=== PATIENT | male | born 1935 | race Caucasian/White ===

== ENCOUNTER 2017-07-28 18:05 | Inpatient (IN) | payer MEDICARE, BC ==
--- NOTE | 2017-07-28 19:01 | RAD ---
RADIOGRAPH CHEST 2 VIEWS: Date: 07-28-17 Time: 6:42 p.m. HISTORY: 81-year-old male with cough and fever. COMPARISON: None. FINDINGS: There is indistinctness of the left lateral costophrenic angle and the bilateral posterior costophren ic angle. Cardiac shadow is partially obscured. No pulmonary edema or consolidation. No pneumothorax. There are streaky densities at the retrocardiac portion of the left lower lobe. IMPRESSION: 1. Findings suggestive of tiny bilateral pleural effusions. 2. Streaky pulmonary densities in the left lower lobe, probably representing subsegmental atelectasis . ELIZABETH POS: LEAH
[2017-07-28] MEDS ORDERED: Albuterol Sulfate 2.5 mg/0.5 ml Neb ONE ×2 (19:35→20:41)
[2017-07-28 19:36] LABS: #Basophils 0.1 thou/uL (0.0-0.2); #Lymphocytes 0.8 thou/uL (1.20-3.40); #Monocytes 0.5 thou/uL (0.11-0.59); #Neutrophils 4.2 thou/uL (1.40-6.50); %Basophils 1.1 % (0.0-1.0); %Lymphocytes 13.4 % (21.0-51.0); %Monocytes 9.5 % (0.0-10.0); Mean Platelet Volume 8.6 fL (7.4-10.4); Red Blood Cell (RBC) Count 4.26 mill/uL (4.70-6.10); White Blood Cell (WBC) Count 5.6 thou/uL (4.8-10.8)
[2017-07-28 19:49] LABS: ALT (SGPT) 27 U/L (8-55); AST (SGOT) 34 U/L (5-34); Alkaline Phosphatase 49 U/L (40-150); Anion Gap 18 mmol/L (10-20); BUN (Urea Nitrogen) 11 mg/dL (8.4-25.7); Bilirubin, Total 0.6 mg/dL (0.2-1.2); Calc. Creatinine Clearance 0 mL/min (70-130); Calcium 8.8 mg/dL (7.8-10.44); Carbon Dioxide 21 mmol/L (23-31); Chloride 95 mmol/L (98-107); Estimated GFR-MDRD 88; Globulin 2.7 g/dL (2.4-3.5); Protein, Total 6.8 g/dL (5.8-8.1)
[2017-07-28] MEDS ORDERED: Oseltamivir 75 MG CAP ONE (21:04)
[2017-07-28] MEDS ORDERED: Ondansetron HCl/PF 4 MG/2 ML Vial IVP PRN (23:39)
[2017-07-28] MEDS ORDERED: Acetaminophen 325 MG TAB PO PRN (23:39)
[2017-07-28] MEDS ORDERED: Ondansetron ODT 4 MG TAB SL PRN (23:39)
--- NOTE | 2017-07-28 23:53 | PDOC.EVN ---
Event Note - Event Note Event Note: [id number] H&P DICTATED 1. Acute influenza infection 2. Pneumonia 3. HTN 4. HPL Plan: see orders
[2017-07-29] MEDS ORDERED: Cyclobenzaprine 10 MG TAB PO PRN (00:25)
[2017-07-29] MEDS ORDERED: Sodium Chloride 0.9% 1,000 ML IV SCH (00:30)
--- NOTE | 2017-07-29 01:08 | HP ---
DATE OF ADMISSION: 07/28/2017 CHIEF COMPLAINT: Dyspnea, cough, congestion. HISTORY OF PRESENT ILLNESS: The patient is 81-year-old male with past medical history of hypertensio n, hyperlipidemia, now came to the ER complaining of cough and chest congestion. The patient started having cough and congestion since yesterday associated with some fever and dyspnea, dyspnea got wors e. The patient had an episode of vomiting yesterday and 2 episodes today. Complaints of fever and c hills. The patient went to outside ER. Upon arrival to the outside ER, the patient was found to be hypoxic with sats around 85% on room air, so patient was placed in oxygen and oxygen sats improved to 91% to 92%. The patient was also wheezing in the outside ER. The patient was transferred to ER as a flu test is positive. PAST MEDICAL HISTORY: As per HPI. PAST SURGICAL HISTORY: Basal cell skin cancer removal. SOCIAL HISTORY: Denies smoking. Drinks alcohol, denies drugs. FAMILY HISTORY: Denies any heart problems. MEDICATIONS: Reviewed. REVIEW OF SYSTEMS: Constitutional: Positive for fever and chills. Positive for fatigue. Eyes: De nies any vision problems. Ears: Denies any hearing loss. Neck: Denies any neck pain. Cardiovascu lar system: Denies any chest pain. Respiratory system: Positive for dyspnea. Positive for cough a nd sputum production. Gastrointestinal: Denies nausea, vomiting. Musculoskeletal: Denies any join t deformities. Cranial nerve system: Denies syncope. Psychiatric: Denies depression or anxiety. Integumentary: Denies any rash. All other review of systems are reviewed and are negative. PHYSICAL EXAMINATION: CONSTITUTIONAL/VITAL SIGNS: At the time of H&P performed, blood pressure is 130/80, heart rate 85, r espiratory rate 20, pulse ox 91% to 99% on 2 liters. GENERAL APPEARANCE: The patient appears comfortable. HEENT: Anterior nares patent. Nose normal. Ears normal. Teeth intact. NECK: Supple, no JVD. RESPIRATORY SYSTEM: Positive for crackles. Occasional wheezing, no rhonchi. Normal effort. CARDIOVASCULAR SYSTEM: S1, S2 present. Regular rate and rhythm. No murmurs, no rubs, no gallops. GASTROINTESTINAL: Abdomen is soft, nontender, no guarding, no organomegaly, no masses felt. MUSCULOSKELETAL: No edema. CRANIAL NERVE SYSTEM: Cranial nerves intact. Follows commands. Speech clear. PSYCHIATRIC: Mood is appropriate at this time. LABORATORY DATA: At the time of H&P performed, white count 5.6, hemoglobin 13.3, platelet count 121. BMP shows sodium 130, potassium 4.1, chloride 95, CO2 of 21, BUN of 11, creatinine 0.84, glucose 11 2. ASSESSMENT AND PLAN: The patient is a 81-year-old male. 1. Acute influenza infection. Plan to start the patient on Tamiflu 75 mg p.o. b.i.d. Plan to monit or the patient closely. 2. Acute hypoxic respiratory failure. Monitor respiratory status closely. Continue breathing treat ments. 3. Possible pneumonia. Plan to start the patient on IV antibiotics. Repeat chest x-ray in 2 days i f symptom does not improve. 4. History of hypertension. Continue blood pressure medications. 5. History of hyperlipidemia. Continue statin. The case was discussed in detail with the patient.
[2017-07-29] MEDS: CEFEPIME SLOW IVP SCH ×2 (08:51→21:29)
[2017-07-29] MEDS: STERILE WATER SLOW IVP SCH ×2 (08:51→21:29)
[2017-07-29] MEDS ORDERED: Diabetic Tussin 200 MG/10 ML UDCUP PO PRN (10:07)
[2017-07-29] MEDS ORDERED: Oseltamivir 75 MG CAP PO SCH ×2 (10:15→21:00)
[2017-07-29 11:52] VITALS: BMI 33.3
--- NOTE | 2017-07-29 15:23 | PDOC.PN ---
- Subjective Encounter Start Date: 07/29/17 Encounter Start Time: 09:00 Patient seen and examined. Feels slightly better. Cough +. No overnight events - Objective MAR Reviewed: Yes Vital Signs & Weight: Vital Signs (12 hours) Temp Pulse Resp BP Pulse Ox 07/29/17 13:55 55 L 20 07/29/17 12:32 96.9 F L 54 L 14 147/67 H 95 07/29/17 10:57 55 L 20 95 07/29/17 09:07 98.6 F 66 18 07/29/17 08:49 98.6 F 66 18 160/74 H 96 07/29/17 04:00 98.2 F 62 18 137/63 95 Weight Admit Weight 97 lb 4.8 oz Weight 219 lb 2.3 oz I&O: 07/28/17 07/29/17 07/30/17 06:59 06:59 06:59 Intake Total 715 Balance 715 Result Diagrams: 07/28/17 19:20 07/28/17 19:20 EKG Reviewed by me: Yes (Tele SR) Phys Exam - Physical Examination Constitutional: NAD Respiratory: no wheezing, no rhonchi Left basilar rales Cardiovascular: RRR, no rub Gastrointestinal: soft, non-tender, positive bowel sounds Musculoskeletal: no edema Neurological: non-focal, moves all 4 limbs Psychiatric: A&O x 3 Dx/Plan - Plan DVT proph w/SCDs IMPRESSION: 1. Acute hypoxic Resp failure - improving 2. Influenza A 3. Suspected CAP due to influenza 4. HTN 5. HLD PLAN: * Cont Tamiflu with Levaquin * Cont current meds as below * Repeat CXR in 4 weeks Review of Systems - Review of Systems Cardiovascular: negative: Chest Pain, Palpitations, Orthopnea, Paroxysmal Noc. Dyspnea, Edema, Light Headedness Gastrointestinal: negative: Nausea, Vomiting, Abdominal Pain, Diarrhea, Constipation, Melena, Hematochezia - Medications/Allergies Allergies/Adverse Reactions: Allergies Allergy/AdvReac Type Severity Reaction Status Date / Time No Known Allergies Allergy Verified 07/29/17 01:22 Medications: Current Medications Albuterol/Ipratropium (Duoneb) 3 ml IPPB [id number] PABLO Last Admin: 07/29/17 13:55 Dose: 3 ml Aspirin (Ecotrin) 81 mg PO HS PABLO Atorvastatin Calcium (Lipitor) 20 mg PO HS PABLO Cyclobenzaprine HCl (Flexeril) 10 mg PO TIDPRN PRN PRN Reason: pain Guaifenesin (Robitussin Sf) 200 mg PO Q4H PRN PRN Reason: Cough Guaifenesin (Mucinex) 600 mg PO Q12HR [facility] HCTZ/Losartan Potassium (Hyzaar 50/12.5) 1 tab PO DAILY [facility] Last Admin: 07/29/17 08:51 Dose: 1 tab Cefepime HCl 2 gm/ Sterile (Water) 12.5 mls @ 150 mls/hr SLOW IVP Q12HR [facility] Last Admin: 07/29/17 08:51 Dose: 12.5 mls Levofloxacin 750 mg/ Device 150 mls @ 100 mls/hr IVPB Q24HR [facility] Oseltamivir Phosphate (Tamiflu) 75 mg PO BID [facility] Stop: 08/03/17 09:01 Sodium Chloride (Flush - Normal Saline) 10 ml IVF Q12HR [facility] Last Admin: 07/29/17 09:06 Dose: Not Given Sodium Chloride (Flush - Normal Saline) 10 ml IVF PRN PRN PRN Reason: Saline Flush
[2017-07-29] MEDS ORDERED: Atorvastatin Calcium 20 MG TAB PO SCH (21:00)
[2017-07-29] MEDS ORDERED: Aspirin 81 mg Enteric Coated Tablet PO SCH (21:00)
[2017-07-29] MEDS: guaiFENesin ER 600 MG TAB PO SCH (21:27)
[2017-07-30 04:34] LABS: #Lymphocytes 1.2 thou/uL (1.20-3.40); #Monocytes 0.6 thou/uL (0.11-0.59); #Neutrophils 2.2 thou/uL (1.40-6.50); %Basophils 0.1 % (0.0-1.0); %Eosinophils 0.6 % (0.0-10.0); %Lymphocytes 28.8 % (21.0-51.0); %Monocytes 14.6 % (0.0-10.0); Hematocrit 38.6 % (42.0-52.0); Mean Platelet Volume 7.2 fL (7.4-10.4); Red Blood Cell (RBC) Count 4.08 mill/uL (4.70-6.10)
[2017-07-30 04:50] LABS: ALT (SGPT) 23 U/L (8-55); AST (SGOT) 28 U/L (5-34); Alkaline Phosphatase 46 U/L (40-150); Anion Gap 11 mmol/L (10-20); BUN (Urea Nitrogen) 10 mg/dL (8.4-25.7); Bilirubin, Total 0.5 mg/dL (0.2-1.2); Calc. Creatinine Clearance 108 mL/min (70-130); Calcium 8.9 mg/dL (7.8-10.44); Carbon Dioxide 27 mmol/L (23-31); Chloride 93 mmol/L (98-107); Estimated GFR-MDRD Greater than 90; Globulin 2.5 g/dL (2.4-3.5); Protein, Total 6.3 g/dL (5.8-8.1)
[2017-07-30] MEDS: guaiFENesin ER 600 MG TAB PO SCH (08:29)
[2017-07-30] MEDS: CEFEPIME SLOW IVP SCH (08:30)
[2017-07-30] MEDS: STERILE WATER SLOW IVP SCH (08:30)
[2017-07-30 08:57] VITALS: BP 137/73; TEMP 97.7
--- NOTE | 2017-07-31 10:33 | DIS ---
DATE OF ADMISSION: 07/28/2017 DATE OF DISCHARGE: 07/30/2017 DISCHARGE DISPOSITION: Home. FOLLOWUP: 1. Follow up with primary care physician, Dr. Fisher at [place] [facility] [place] in 1 week. 2. Base met in 3 days is recommended. Primary care physician is advised to follow. He was also adv ised to contact Dr. Wu if his sodium is persistently low. ALLERGIES: No known drug allergies. The patient was seen and examined on the day of discharge. Denies any new complaints. Overall, symp tomatically feels much better. DISCHARGE MEDICATIONS: 1. Levaquin 500 mg daily, #7. 2. Losartan 50 mg daily (losartan/HCTZ was discontinued due to hyponatremia). 3. Tamiflu 75 mg twice a day, #7. 4. Zocor 40 mg at bedtime. 5. Flexeril as needed. 6. Mucinex 600 mg b.i.d. 7. Aspirin 81 mg at bedtime. BRIEF HOSPITAL COURSE: The patient is a 81-year-old male with hypertension and hyperlipidemia, prese nted to the hospital with cough, congestion, and fever. His workup was consistent with acute influen za A infection with acute hypoxic respiratory failure and suspected pneumonia. He was started on Lee iflu with Levaquin with good improvement. He will be discharged home with Tamiflu and Levaquin. On admission, his sodium was 130. This was thought to be secondary to dehydration versus SIADH. HCT Z was discontinued for this reason. He will continue losartan only for now. He was advised to incre ase the losartan dose if his blood pressure is uncontrolled. His sodium on the day of discharge is 1 28 with potassium 3.4. His potassium has been replaced. He was advised to stay in the hospital over night for sodium monitoring. However, the patient requested to be discharged. This risk associated with low sodium was discussed with the patient and he stated understanding. He will follow up with h is primary care physician and get a base met in 2-3 days. He was also advised to follow up with Dr. Wu as outpatient who is a gun number if his sodium is persistently low. Plan of care was discussed with the patient in detail. He stated understanding. FINAL DIAGNOSES: 1. Acute hypoxic respiratory failure secondary to influenza A with pneumonia. 2. Acute influenza A infection. 3. Community-acquired pneumonia, suspected secondary to influenza versus bacteria. His blood cultur es have been negative at 48 hours. Primary care physician is advised to follow up on final blood cul tures. 4. Obesity with a BMI of 33. 5. Hypertension. 6. Hyperlipidemia. 7. Hyponatremia. 8. Hypokalemia. 9. Chronic anemia. 10. Thrombocytopenia with platelet of 127 on the day of discharge. Primary care physician is advise d to follow. 11. Metabolic acidosis on admission, resolved. Plan of care was discussed with the patient in detail. He stated understanding.
== END 2017-07-30 11:30 | disposition home or self-care (01) | DRG 193 ==
LOC: SCSER 18:05 → 2NO 22:15 → T4-A 07-29 17:19
PROVIDERS: ADMIT Internal Medicine; ATTEND Internal Medicine
DX: J10.00 Influenza due to other identified influenza virus with unspecified type of pneumonia (principal); J96.01 Acute respiratory failure with hypoxia; E87.2 Acidosis; E87.1 Hypo-osmolality and hyponatremia; D69.6 Thrombocytopenia, unspecified; E86.0 Dehydration; I10 Essential (primary) hypertension; E78.5 Hyperlipidemia, unspecified; Z85.828 Personal history of other malignant neoplasm of skin; E66.9 Obesity, unspecified; Z68.33 Body mass index [BMI] 33.0-33.9, adult; E87.6 Hypokalemia; D64.9 Anemia, unspecified
CPT/HCPCS: 36415; 36416; 71020; 80053; 83735; 85025; 87040; 94640; A4216; J0692; J1956; J7611; J7620